=== PATIENT | male | born 1960 | race Caucasian/White ===

== ENCOUNTER 2024-04-26 07:13 | Day surgery (SDC) | payer BC ==
[2024-04-26] MEDS: Lactated Ringers 1,000 ML IV SCH (07:41)
[2024-04-26] MEDS ORDERED: fentaNYL 100 MCG/2 ML SDV ONE (08:37)
[2024-04-26] MEDS ORDERED: Propofol 200 MG/20 ML SDV ONE (08:37)
== END 2024-04-26 11:56 | disposition home or self-care (01) ==
LOC: VM.SDS 07:13
PROVIDERS: ATTEND Student in an Organized Health Care Education/Training Program
DX: Z12.11 Encounter for screening for malignant neoplasm of colon (principal); D12.2 Benign neoplasm of ascending colon; D12.3 Benign neoplasm of transverse colon; K21.9 Gastro-esophageal reflux disease without esophagitis; E78.00 Pure hypercholesterolemia, unspecified; I10 Essential (primary) hypertension; G47.33 Obstructive sleep apnea (adult) (pediatric)
CPT/HCPCS: 00811; J2704; J3010; J7120